=== PATIENT | male | born 1980 | race Caucasian/White ===

== ENCOUNTER 2020-08-13 07:57 | Inpatient (IN) | payer MEDICAID ==
[~2020-08-13] VITALS: Ht 167.6 cm; Wt 132.4 kg
[2020-08-13] MEDS ORDERED: KETOROLAC 60MG/2ML VIAL IM ONE (08:15)
[2020-08-13] MEDS ORDERED: DIPHENHYDRAMINE 50MG CAPSULE PO ONE (09:00)
[2020-08-13] MEDS ORDERED: MORPHINE SULFATE 4 MG/ML CPJ (NOT FOR IM USE) IV STA (10:27)
[2020-08-13] MEDS ORDERED: ONDANSETRON HCL 4MG/2ML INJ IV STA (10:27)
[2020-08-13] MEDS ORDERED: SODIUM CHLORIDE 0.9% 1,000 ML IV ONE ×2 (10:30→19:00)
[2020-08-13 11:22] LABS: HEMATOCRIT. 41.9 % (42.0-52.0); HEMOGLOBIN. 14.3 g/dL (14.0-18.0); MEAN CORPUSCULAR HEMOGLOBIN 33.2 pg (28.0-32.0); MEAN CORPUSCULAR VOLUME 96.9 fL (80.0-94.0); MEAN PLATELET VOLUME 8.2 fl (7.4-10.4); PLATELET 294 x1000/uL (130-400); RED BLOOD CELL COUNT 4.32 mill/uL (4.7-6.1); RED CELL DISTRIBUTION WIDTH 12.7 % (11.6-14.6)
[2020-08-13 11:28] LABS: CHLORIDE 103 mEq/L (98-107)
[2020-08-13 11:31] LABS: PROTHROMBIN TIME 10.8 sec (9.6-11.0)
[2020-08-13 11:51] LABS: PLATELET ESTIMATE NORMAL
[2020-08-13] MEDS ORDERED: ONDANSETRON HCL 4MG/2ML INJ IV PRN ×2 (12:45→19:00)
[2020-08-13] MEDS ORDERED: DOCUSATE SODIUM 100MG CAPSULE PO PRN (12:45)
[2020-08-13] MEDS: SODIUM CHLORIDE 0.45% 1,000 ML IV SCH (12:45)
[2020-08-13] MEDS ORDERED: MAGNESIUM/ALUMINUM HYDROXIDE/SIMETHICONE 30ML UDC PO PRN (12:45)
[2020-08-13] MEDS ORDERED: ACETAMINOPHEN 325MG TABLET PO PRN (12:45)
[2020-08-13] MEDS ORDERED: HYDROCODONE/ACETAMINOPHEN 5/325MG TABLET PO PRN (12:45)
[2020-08-13] MEDS ORDERED: CLONIDINE 0.1MG TABLET PO PRN (12:45)
[2020-08-13] MEDS: ENOXAPARIN 30MG/0.3ML SYR SUBCUT SCH ×2 (14:11→23:00)
[2020-08-13] MEDS ORDERED: DEXTROSE 50% WATER 50ML SYRINGE IV PRN (15:30)
[2020-08-13 16:00] VITALS: BP 134/67
[2020-08-13 16:14] VITALS: BP 134/67
[2020-08-13] MEDS: BLOOD SUGAR DIAGNOSTIC STRIP TEST SCH ×2 (17:20→21:00)
[2020-08-13] MEDS ORDERED: VANCOMYCIN HCL 1 GM/VIAL ONE (18:36)
[2020-08-13] MEDS: INSULIN LISPRO 100 UNITS/ML SUBCUT SCH ×2 (18:37→21:00)
[2020-08-13] MEDS ORDERED: MEPERIDINE HCL/PF 25MG/ML CPJ IV PRN ×2 (19:00)
[2020-08-13] MEDS ORDERED: MORPHINE SULFATE 2 MG/ML CPJ (NOT FOR IM USE) IV PRN (19:00)
[2020-08-13] MEDS ORDERED: NEOSTIGMINE METHYLSULFATE 1MG/ML 10 ML VIAL ONE (19:05)
[2020-08-13] MEDS ORDERED: FENTANYL CITRATE/PF 50MCG/ML 2ML VIAL ONE (19:05)
[2020-08-13] MEDS ORDERED: ROCURONIUM BROMIDE 10MG/ML VIAL 5ML IV ONE (19:05)
[2020-08-13] MEDS ORDERED: METOCLOPRAMIDE HCL 10MG/2ML VIAL ONE (19:06)
[2020-08-13] MEDS ORDERED: LIDOCAINE HCL/PF 1% 10 MG/ML 5ML VIAL ONE (19:06)
[2020-08-13] MEDS ORDERED: GLYCOPYRROLATE 0.2 MG/ML 2ML VIAL ONE (19:06)
[2020-08-13] MEDS ORDERED: PHENYLEPHRINE HCL 10 MG/ML 1ML (IV VIAL) IV ONE (19:06)
[2020-08-13] MEDS ORDERED: CEFAZOLIN SODIUM 1000MG/VIAL ONE (19:06)
[2020-08-13] MEDS ORDERED: SUCCINYLCHOLINE CHLORIDE 200MG/10ML IV ONE (19:06)
[2020-08-13] MEDS ORDERED: MIDAZOLAM HCL 2 MG/2 ML VIAL ONE (19:06)
[2020-08-13] MEDS ORDERED: PROPOFOL 200MG/20ML VIAL IV ONE (19:06)
[2020-08-13] MEDS ORDERED: SODIUM CHLORIDE 0.9% 10ML VIAL ONE (19:06)
[2020-08-13] MEDS ORDERED: ONDANSETRON HCL 4MG/2ML INJ ONE (19:06)
[2020-08-13] MEDS ORDERED: GENTAMICIN SULF 40MG/ML 2ML VIAL ONE (19:52)
[2020-08-13] MEDS: HYDROMORPHONE HCL/PF 2MG/ML CPJ IV PRN ×4 (20:28→20:37)
[2020-08-13] MEDS: CEFAZOLIN 2,000 MG in DEXT 5% WATER 100 ML IV SCH (23:22)
[2020-08-14] VITALS: BP 145/75
[2020-08-14 04:00] VITALS: BP 123/64
[2020-08-14] MEDS: SODIUM CHLORIDE 0.45% 1,000 ML IV SCH ×2 (05:24→22:44)
[2020-08-14] MEDS: CEFAZOLIN 2,000 MG in DEXT 5% WATER 100 ML IV SCH ×3 (05:26→22:42)
[2020-08-14 06:50] LABS: BASOPHILS % 0.3 % (0.0-2.0); EOSINOPHILS % 14.3 % (0.0-5.0); HEMATOCRIT. 34.2 % (42.0-52.0); HEMOGLOBIN. 11.8 g/dL (14.0-18.0); LYMPHOCYTES % 13.6 % (20.0-50.0); MEAN CORPUSCULAR HEMOGLOBIN 33.6 pg (28.0-32.0); MEAN CORPUSCULAR VOLUME 97.5 fL (80.0-94.0); MEAN PLATELET VOLUME 8.3 fl (7.4-10.4); MONOCYTES % 5.7 % (2.0-8.0); NEUTROPHILS % 66.1 % (40.0-76.0); PLATELET 229 x1000/uL (130-400); RED CELL DISTRIBUTION WIDTH 12.6 % (11.6-14.6)
[2020-08-14 06:53] LABS: CHLORIDE 106 mEq/L (98-107)
[2020-08-14] MEDS: BLOOD SUGAR DIAGNOSTIC STRIP TEST SCH ×4 (07:11→21:00)
[2020-08-14 08:00] VITALS: BP 135/84
[2020-08-14] MEDS: ENOXAPARIN 30MG/0.3ML SYR SUBCUT SCH ×2 (08:37→21:00)
[2020-08-14] MEDS: INSULIN LISPRO 100 UNITS/ML SUBCUT SCH ×4 (08:42→23:27)
[2020-08-14] MEDS: HYDROMORPHONE HCL/PF 2MG/ML CPJ IV PRN (09:41)
[2020-08-14] MEDS ORDERED: DIPHENHYDRAMINE 50MG CAPSULE PO PRN (11:00)
[2020-08-14 12:00] VITALS: BP 127/76
[2020-08-14 16:00] VITALS: BP 128/80
[2020-08-14] MEDS: METFORMIN HCL 500MG TABLET PO SCH (18:05)
[2020-08-14 20:00] VITALS: BP 129/68
[2020-08-15] VITALS: BP 130/79
[2020-08-15 04:00] VITALS: BP 136/64
[2020-08-15] MEDS: HYDROMORPHONE HCL/PF 2MG/ML CPJ IV PRN ×3 (04:03→21:46)
[2020-08-15] MEDS: SODIUM CHLORIDE 0.45% 1,000 ML IV SCH ×2 (07:04→18:31)
[2020-08-15] MEDS: CEFAZOLIN 2,000 MG in DEXT 5% WATER 100 ML IV SCH ×3 (07:04→21:47)
[2020-08-15 08:00] VITALS: BP 135/76
[2020-08-15] MEDS: BLOOD SUGAR DIAGNOSTIC STRIP TEST SCH ×4 (08:18→21:00)
[2020-08-15] MEDS: METFORMIN HCL 500MG TABLET PO SCH ×2 (08:19→18:31)
[2020-08-15] MEDS: ENOXAPARIN 30MG/0.3ML SYR SUBCUT SCH ×2 (08:19→21:46)
[2020-08-15] MEDS: INSULIN LISPRO 100 UNITS/ML SUBCUT SCH ×4 (09:15→22:19)
[2020-08-15 12:00] VITALS: BP 155/80
[2020-08-15 16:00] VITALS: BP 155/80
[2020-08-15 20:00] VITALS: BP 133/76
[2020-08-16] VITALS (7 sets, daily range): BP systolic 103–152; BP diastolic 73–85
[2020-08-16] MEDS: SODIUM CHLORIDE 0.45% 1,000 ML IV SCH ×2 (07:13→21:28)
[2020-08-16] MEDS: BLOOD SUGAR DIAGNOSTIC STRIP TEST SCH ×4 (07:13→21:29)
[2020-08-16] MEDS: INSULIN LISPRO 100 UNITS/ML SUBCUT SCH ×4 (07:50→21:00)
[2020-08-16] MEDS: ENOXAPARIN 30MG/0.3ML SYR SUBCUT SCH ×2 (08:33→21:29)
[2020-08-16] MEDS: METFORMIN HCL 500MG TABLET PO SCH ×2 (08:33→17:31)
[2020-08-16] MEDS: HYDROMORPHONE HCL/PF 2MG/ML CPJ IV PRN ×2 (10:25→21:28)
[2020-08-17] VITALS: BP 135/79
[2020-08-17 04:00] VITALS: BP 148/85
[2020-08-17] MEDS: BLOOD SUGAR DIAGNOSTIC STRIP TEST SCH ×3 (07:20→17:20)
[2020-08-17] MEDS: INSULIN LISPRO 100 UNITS/ML SUBCUT SCH ×3 (07:50→17:50)
[2020-08-17] MEDS: METFORMIN HCL 500MG TABLET PO SCH ×2 (08:50→18:54)
[2020-08-17] MEDS: ENOXAPARIN 30MG/0.3ML SYR SUBCUT SCH (08:51)
[2020-08-17 09:38] VITALS: BP 139/96
[2020-08-17] MEDS: HYDROMORPHONE HCL/PF 2MG/ML CPJ IV PRN (09:38)
[2020-08-17] MEDS: SODIUM CHLORIDE 0.45% 1,000 ML IV SCH (09:45)
== END 2020-08-17 19:06 | disposition home or self-care (01) | DRG 308 ==
LOC: ER 07:57 → 6EST 11:56 → ENRESERV 14:47
PROVIDERS: ADMIT Hospitalist; ATTEND Hospitalist
PROC: 0QS704Z Reposition Left Upper Femur with Internal Fixation Device, Open Approach (ICD-10-PCS; principal; 2020-08-13)
DX: S72.032A Displaced midcervical fracture of left femur, initial encounter for closed fracture (principal); Z68.42 Body mass index [BMI] 45.0-49.9, adult; E11.65 Type 2 diabetes mellitus with hyperglycemia; Z20.822 Contact with and (suspected) exposure to COVID-19; Y93.01 Activity, walking, marching and hiking; Y99.8 Other external cause status; V03.10XA Pedestrian on foot injured in collision with car, pick-up truck or van in traffic accident, initial encounter; Y92.89 Other specified places as the place of occurrence of the external cause; E66.9 Obesity, unspecified
CPT/HCPCS: 36415; 71045; 73501; 73502; 73552; 76000; 80053; 82962; 83036; 85025; 87426; 93005; 97116; 97162; 97530; 99285; J0330; J0690; J1170; J1580; J1650; J1815; J1885; J2250; J2370; J2405; J2704; J2710; J2765; J3010; J3370; J3490; J7030; J7060; Q0163